=== PATIENT | male | born 1965 | race Caucasian/White ===

== ENCOUNTER 2023-02-07 16:49 | Emergency (ER) | payer OTHER, SELFPAY ==
[2023-02-07 16:54] VITALS: BP 185/106; PULSE 122; RESP 18; TEMP 36.9; O2SAT 94; BMI 25.1
[2023-02-07 18:00] VITALS: PULSE 98; RESP 14
[2023-02-07] MEDS: LIDOCAINE 1% (PF) 5 ML INJ (18:09)
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
[2023-02-07 19:12] VITALS: BP 162/95; PULSE 90; RESP 16; TEMP 36.7; O2SAT 98
== END 2023-02-07 19:13 | disposition home or self-care (01) ==
PROVIDERS: Emergency Provider Emergency Medicine
DX: S01.511A Laceration without foreign body of lip, initial encounter (principal); Y04.2XXA Assault by strike against or bumped into by another person, initial encounter
CPT/HCPCS: 12011; 12013; 99283